=== PATIENT | female | born 1980 | race Caucasian/White ===

== ENCOUNTER 2018-07-26 03:10 | Emergency (ER) | payer BC ==
[2018-07-26] MEDS ORDERED: FLUORESCEIN SODIUM 0.6 MG/WRAP ONE (03:36)
[2018-07-26] MEDS ORDERED: TETRACAINE HCL 0.5% 2ML OPTH ONE (03:36)
--- NOTE | 2018-07-26 03:38 | EDPHYS ---
Physician Documentation [facility] Name: Aury Jolley Age: 38 yrs Sex: Female : 1980 Arrival Date: 07/26/2018 Time: 03:12 Bed 5 Private MD: ED Physician Kimber Henning HPI: 07/26 03:31 This 38 yrs old Female presents to ER via Ambulatory with complaints of Eye ma2 Injury. 03:31 The patient sustained an abrasion. Onset: The symptoms/episode began/occurred suddenly, ma2 3 hour(s) ago. Duration: the symptoms are continuous. Associated signs and symptoms: Pertinent negatives: None. chills, ear ache, fever, runny nose. Severity of symptoms: At their worst the symptoms were moderate in the emergency department the symptoms are unchanged. The patient has not experienced similar symptoms in the past. her child stuck his finger in her left eye 4 hrs ago has pain . 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 - Social history:: Patient/guardian denies using alcohol, street drugs, The patient lives with family, Smoking status: Patient/guardian denies using tobacco. - Ebola Screening: : No symptoms or risks identified at this time. - Family history:: not pertinent. ROS: 03:31 Constitutional: Negative for fever, chills, and weight loss, Eyes: Negative for injury, ma2 pain, redness, and discharge. 03:31 Eyes: Positive for pain, Negative for acute changes, blurry vision, foreign body sensation, injury or acute deformity, itching, matting, photophobia, redness, sunken appearance, swelling, tearing, vision loss. 03:31 All other systems are negative. Exam: 03:31 Visual Acuity: Visual acuity is within normal limits. ma2 03:31 Constitutional: This is a well developed, well nourished patient who is awake, alert, and in no acute distress. Head/Face: Normocephalic, atraumatic. ENT: Nares patent. No nasal discharge, no septal abnormalities noted. Tympanic membranes are normal and external auditory canals are clear. Oropharynx with no redness, swelling, or masses, exudates, or evidence of obstruction, uvula midline. Mucous membranes moist. Neck: Trachea midline, no thyromegaly or masses palpated, and no cervical lymphadenopathy. Supple, full range of motion without nuchal rigidity, or vertebral point tenderness. No Meningismus. Chest/axilla: Normal chest wall appearance and motion. Nontender with no deformity. No lesions are appreciated. 03:31 Eyes: Periorbital structures: appear normal, Pupils: equal, round, and reactive to light and accomodation, Extraocular movements: no acute changes, Conjunctiva: normal, Corneas: abrasion, that is small, approximately 3 mm(s), on the left, at 6 o'clock, Sclera: no appreciated abnormality, Anterior chamber: normal, Visual prater: are intact, Nystagmus: is not appreciated. Vital Signs: 03:27 BP 123 / 80; Pulse 85; Resp 18; Temp 98.2; Pulse Ox 98% on R/A; Weight 90.72 kg; Height ea 5 ft. 8 in. (172.72 cm); Pain 6/10; 03:27 Body Mass Index 30.41 (90.72 kg, 172.72 cm) ea MDM: 03:18 Patient medically screened. [facility] 03:31 Differential diagnosis: Corneal abrasion of Ultraviolet keratitis in. Data reviewed: [facility] vital signs, nurses notes. Response to treatment: the patient's symptoms have resolved after treatment. 07/26 03:43 Order name: Fluoresene Opth strip; Complete Time: 03:44 bb 07/26 03:43 Order name: Eye Tray; Complete Time: 03:44 bb Administered Medications: 03:35 Drug: Tetracaine Drops 0.5 % 1 drops Route: Ophthalmic; Site: left eye; bb 03:44 Follow up: Response: No adverse reaction bb 03:36 Drug: Fluorescein Strip 1 strip Route: Ophthalmic; Site: left eye; bb 03:44 Follow up: Response: No adverse reaction bb Disposition: 07/26/18 03:37 Discharged to Home. Impression: Injury of conjunctiva and corneal abrasion without foreign body. - Condition is Stable. - Discharge Instructions: Corneal Abrasion. - Prescriptions for Erythromycin 5 mg/gram (0.5 %) Ophthalmic Ointment - apply 1 ribbon by OPHTHALMIC route every 8 hours; 1 tube. - Medication Reconciliation Form, Thank You Letter, Antibiotic Education, Prescription Opioid Use form. - Follow up: Private Physician; When: Tomorrow; Reason: Continuance of care. Signatures: Erma Villalobos RN RN Tamia Frost RN RN ea Alzahri, Mohammad, MD MD ma2 Corrections: (The following items were deleted from the chart) 03:53 03:37 07/26/2018 03:37 Discharged to Home. Impression: Injury of conjunctiva and bb corneal abrasion without foreign body. Condition is Stable. Forms are Medication Reconciliation Form, Thank You Letter, Antibiotic Education, Prescription Opioid Use. Follow up: Private Physician; When: Tomorrow; Reason: Continuance of care. ma2
--- NOTE | 2018-07-26 03:38 | ER ---
Nurse's Notes [facility] Name: Aury Jolley Age: 38 yrs Sex: Female : 1980 Arrival Date: 07/26/2018 Time: 03:12 Bed 5 Private MD: Diagnosis: Injury of conjunctiva and corneal abrasion without foreign body Presentation: 07/26 03:24 Presenting complaint: Patient states: Reports she was laying her kids down to bed late ea last night and was accidently pocked in the left eye by one of them. Pt reports severe pain every 20 to 40 minutes. Denies blurred vision or sensitivity. Transition of care: patient was not received from another setting of care. The patient denies any loss of vision. Onset of symptoms was July 26, 2018. Risk Assessment: Do you want to hurt yourself or someone else? Patient reports no desire to harm self or others. Initial Sepsis Screen: Does the patient meet any 2 criteria? No. Patient's initial sepsis screen is negative. Does the patient have a suspected source of infection? No. Patient's initial sepsis screen is negative. Care prior to arrival: None. 03:24 Method Of Arrival: Ambulatory ea 03:24 Acuity: BESSIE 4 ea 03:52 Mechanism of Injury: child "poked" her in her left eye. bb Triage Assessment: 03:28 General: Appears in no apparent distress. Behavior is calm, cooperative, appropriate ea for age. Pain: Complains of pain in left eye. EENT: Eyes are tearing on outer aspect of conjuctiva of left eye and inner aspect of conjunctiva of left eye Sclera/Cornea are reddened in outer aspect of conjuctiva of left eye and inner aspect of conjunctiva of left eye. Neuro: Level of Consciousness is awake, alert, obeys commands, Oriented to person, place, time, situation. Cardiovascular: Heart tones S1 S2 present Patient's skin is warm and dry. Respiratory: Airway is patent Respiratory effort is even, unlabored, Respiratory pattern is regular, symmetrical, Breath sounds are clear bilaterally. Derm: Skin is pink, warm \\T\\ dry. NIGHT CLERK: 03:53 LMP N/A - bb Historical: - Allergies: 03:31 TETRACYCLINES; ea - Home Meds: 03:31 None [Active]; ea - PMHx: 03:31 Hypothyroidism; ea - PSHx: 03:31 None; ea - Immunization history:: Adult Immunizations up to date. - Social history:: Patient/guardian denies using alcohol, street drugs, The patient lives with family, Smoking status: Patient/guardian denies using tobacco. - Ebola Screening: : No symptoms or risks identified at this time. - Family history:: not pertinent. Screenin:27 Abuse screen: Denies threats or abuse. Nutritional screening: No deficits noted. ea Tuberculosis screening: No symptoms or risk factors identified. Fall Risk None identified. Assessment: 03:31 Reassessment: see triage assessment. ea 03:51 Reassessment: Patient is alert, oriented x 3, equal unlabored respirations, skin bb warm/dry/pink. pt verbalized understanding of and agrees to plan of care discharge instructions given pt ambulated with steady gait to exit. Vital Signs: 03:27 BP 123 / 80; Pulse 85; Resp 18; Temp 98.2; Pulse Ox 98% on R/A; Weight 90.72 kg; Height ea 5 ft. 8 in. (172.72 cm); Pain 6/10; 03:27 Body Mass Index 30.41 (90.72 kg, 172.72 cm) ea ED Course: 03:12 Patient arrived in ED. al2 03:18 Kimber Henning MD is Attending Physician. ma2 03:23 Tamia Boucher, EFRAIN is Primary Nurse. ea 03:26 Triage completed. ea 03:26 Arm band placed on right wrist. Patient placed in an exam room, on a stretcher, on ea pulse oximetry. 03:27 Patient has correct armband on for positive identification. Bed in low position. Call ea light in reach. Side rails up X2. 03:51 Assist provider with eye exam of left eye. using fluorescein stain, Performed by win Henning MD Patient tolerated well. Patient did not have IV access during this emergency room visit. Administered Medications: 03:35 Drug: Tetracaine Drops 0.5 % 1 drops Route: Ophthalmic; Site: left eye; bb 03:44 Follow up: Response: No adverse reaction bb 03:36 Drug: Fluorescein Strip 1 strip Route: Ophthalmic; Site: left eye; bb 03:44 Follow up: Response: No adverse reaction bb Outcome: 03:37 Discharge ordered by . ma2 03:52 Discharged to home ambulatory. bb 03:52 Condition: stable 03:52 Discharge instructions given to patient, Instructed on discharge instructions, follow up and referral plans. medication usage, Demonstrated understanding of instructions, follow-up care, medications, Prescriptions given X 1. 03:53 Patient left the ED. bb Signatures: Erma Villalobos RN RN bb Antunez, Elena, RN RN ea Love, Angelica al2 Alzahri, Mohammad, MD MD ma2
== END 2018-07-26 03:53 | disposition home or self-care (01) ==
LOC: ER 03:10
DX: S05.02XA Injury of conjunctiva and corneal abrasion without foreign body, left eye, initial encounter (principal); W50.0XXA Accidental hit or strike by another person, initial encounter; Y93.9 Activity, unspecified; Y92.9 Unspecified place or not applicable; Z88.1 Allergy status to other antibiotic agents
CPT/HCPCS: 99284